=== PATIENT | female | born 1995 | race Caucasian/White ===

== ENCOUNTER 2022-05-02 09:43 | Outpatient (CLI) | payer OTHER, SELFPAY ==
--- NOTE | ~2022-05-02 | XR_ITS ---
EXAMINATION: XR UGIAC w barium swallow DATE: 05/02/2022 10:24 INDICATION: Diaphragmatic hernia without obstruction or gangrene. Gastroesophageal reflux disease. TECHNIQUE: The patient drank thick barium, gas-producing crystals, and thin barium. Fluoroscopy of th e esophagus, stomach, and proximal small bowel was performed. Fluoroscopy exposure time was 0.7 minut es. The total number of images was 280. Total dose-area product was 1.056 Gy-cm^2. COMPARISON: None. FINDINGS: There is no mass or stricture of the esophagus. Esophageal motility is normal. There is no hiatal hernia. There was no gastroesophageal reflux with provocative maneuvers. The stomach and proxi mal small bowel show normal folding patterns. IMPRESSION: 1. Normal upper gastrointestinal series and esophagram. Reviewed, dictated and finalized at location A. [employer]
== END 2022-05-02 09:44 | disposition home or self-care (01) ==
PROVIDERS: PCP Internal Medicine; Visit Provider Nurse Practitioner
DX: K44.9 Diaphragmatic hernia without obstruction or gangrene (principal)
CPT/HCPCS: 74246

== ENCOUNTER 2024-07-16 08:43 | Outpatient (CLI) | payer OTHER, SELFPAY ==
--- NOTE | ~2024-07-16 | US_ITS ---
US breast LT limited 07/16/2024 09:01 Indication: Left breast lump Procedure: High-resolution Limited ultrasound of the left breast Comparison: No prior studies for comparison. Findings: At 1:00, 3 cm from the nipple there is an oval circumscribed parallel oriented hypoechoic m ass with low level internal echoes measuring 9 x 4 x 9 mm. No internal vascularity or posterior featu res. No additional masses are seen. Impression: 1: Likely benign left breast mass at 1:00, 3 cm from the nipple, corresponding to the palpable abnorm ality. BI-RADS CATEGORY 3-PROBABLY BENIGN FINDING RECOMMENDATION: 6 month follow-up Limited left breast ultrasound recommended. Reviewed, dictated and finalized at location [] Impression: 1: Likely benign left breast mass at 1:00, 3 cm from the nipple, corresponding to the palpable abnormality. BI-RADS CATEGORY 3-PROBABLY BENIGN FINDING RECOMMENDATION: 6 month follow-up Limited left breast ultrasound recommended.
== END 2024-07-16 08:44 | disposition home or self-care (01) ==
LOC: MICIMG 08:43
PROVIDERS: PCP Internal Medicine; Visit Provider Nurse Practitioner
DX: N63.21 Unspecified lump in the left breast, upper outer quadrant (principal)
CPT/HCPCS: 76642